=== PATIENT | female | born 1995 | race American Indian/Alaskan Native ===

== ENCOUNTER 2017-10-19 21:25 | Emergency (ER) | payer SELFPAY ==
[2017-10-19 21:44] VITALS: BP 121/62
[2017-10-19] MEDS ORDERED: ZOFRAN ODT PO ONE (22:45)
[2017-10-19 23:32] LABS: BUN/Creatinine Ratio 14; Blood Urea Nitrogen 7 mg/dL (7-17); Calcium 9.5 mg/dL (8.4-10.2); Hemolysis Index 1
[2017-10-19 23:45] LABS: Hematocrit 39.6 % (30.3-42.9); Hemoglobin 12.9 gm/dl (10.1-14.3); Mean Corpuscular HGB Conc 33 % (30-34); Mean Corpuscular Hemoglobin 28 pg (28-32); Mean Corpuscular Volume 86 fl (79-97); Platelet Count 268 K/mm3 (140-440); Red Cell Distribution Width 16.6 % (13.2-15.2)
[2017-10-20 00:16] LABS: Bacteria,Urine 1+ /HPF (Negative); Bilirubin,Urine NEG (Negative); Blood,Urine MOD (Negative); Color,Urine Yellow (Yellow); Mucus,Urine 3+ /HPF; Nitrite,Urine NEG (Negative)
--- NOTE | 2017-10-20 01:49 | Ultrasound Report ---
FINAL REPORT EXAM: US OB TRANSVAGINAL HISTORY: preg with pelvic pain and bleeding TECHNIQUE: Transvaginal imaging was obtained of the pelvis. Doppler interrogation of the uterus and adnexa was also obtained. FINDINGS: The uterus is anteverted measuring 8.6 cm x 5.2 cm x 6.3 cm. Within the uterus is a gestational sac containing a yolk sac and pole. The crown-rump length of the pole is 5.3 millimeters corresponding to a 6 week 2 day IUP. The heart rate is 98 beats per minute which is below normal. Along the ventral margin of the gestational sac is a nonspecific hypoechoic area measuring 1.2 cm x 0.8 cm x 1.2 cm. The cervix is closed. Free fluid is not seen. The right ovary is normal size contour and echotexture measuring 2 cm x 1.1 cm x 1.9 cm. The left ovary measures 3 cm x 2.2 cm x 2.2 cm. Within the left ovary is a slightly hypoechoic area measuring up to 1.8 cm in diameter. This may represent a hemorrhagic cyst. Free fluid is not seen in the pelvis. IMPRESSION: Single viable 6 week 2 day IUP as described. heart rate is low normal at 98 BPM. Follow-up study recommended. Non specific hypoechoic area along the anterior wall of the gestational sac measuring 1.2 cm x 0.8 cm x 1.2 cm. Whether this represents a very small subchorionic hemorrhage is uncertain. Hypoechoic area in the left ovary measuring up to 1.8 cm in diameter. This may represent a hemorrhagic cyst
--- NOTE | 2017-10-20 02:04 | Ultrasound Report ---
FINAL REPORT EXAM: US OB < = 14 WEEKS FETUS HISTORY: preg with pelvic pain and bleeding TECHNIQUE: Transabdominal imaging was obtained of the pelvis. Doppler interrogation was obtained of the uterus and adnexa. FINDINGS: The uterus is anteverted measuring 8.6 cm x 5.2 cm x 6.3 cm. Within the uterus is a gestational sac containing a yolk sac and pole. The crown-rump length is 5.3 millimeters corresponding to a 6 week 2 day IUP. The heart rate is diminished at 98 beats per minute. The cervix is closed. Along the anterior wall of the gestational sac is an indeterminate hypoechoic area measuring 1.2 cm x 0.8 cm x 1.2 cm. The maternal right ovary is appropriate size contour and echotexture measuring 2 cm x 1.1 cm x 1.9 cm. The left ovary measures 3 cm x 2.2 cm x 2.2 cm. There is a hypoechoic area measuring 1.8 cm diameter possibly representing a hemorrhagic cyst. Free fluid is not seen IMPRESSION: Six week 2 day IUP with heart rate of 98 BPM. Follow-up studies recommended given the diminished heart rate. Indeterminate hypoechoic area along the anterior wall of the gestational sac measuring 1.2 cm x 0.8 cm x 1.2 cm. With this represents subchorionic hemorrhage is uncertain. Once again a follow-up studies recommended. Probable hemorrhagic cyst in left ovary measuring 1.8 cm in diameter.
[2017-10-20] MEDS ORDERED: NACL 0.9% 1000 ML 1,000 ML IV ONE (10:53)
[2017-10-20] MEDS ORDERED: MACROBID PO ONE (10:53)
--- NOTE | 2017-10-20 10:56 | Emergency Department Report ---
HPI - General Chief Complaint: Nausea/Vomiting/Diarrhea Time Seen by Provider: 10/20/17 10:52 - HPI HPI: This a 22 year-old female presents to the emergency department with complaint of some mild vaginal spotting for one day and a two-week history of nausea with vomiting. Patient took a home test and said it was positive but has not yet been in to see an [facility]. She does follow with [facility] for regular [facility] checkups. She has not taken anything for her symptoms presentation. With this she is with one previous . She denies any fever, back pain, dysuria or vaginal discharge. No recent travel or sick contacts at home. ED Past Medical Hx - Past Medical History Previous Medical History?: No - Surgical History Past Surgical History?: No - Social History Smoking Status: Never Smoker Substance Use Type: None - Medications Home Medications: Home Medications Medication Instructions Recorded Confirmed Last Taken Type Nitrofurantoin Monohyd/M-Cryst 100 mg PO BID #14 capsule 10/20/17 Unknown Rx [Macrobid 100 mg Capsule] Vit Calc,Iron,Folic 1 each PO QDAY #30 tablet 10/20/17 Unknown Rx [ Vitamins] ED Review of Systems ROS: Stated complaint: VOMITING,VAGINAL BLEEDING Other details as noted in HPI Comment: All other systems reviewed and negative Constitutional: denies: chills, fever Eyes: denies: eye pain, eye discharge, vision change ENT: denies: ear pain, throat pain Respiratory: denies: cough, shortness of breath, wheezing Cardiovascular: denies: chest pain, palpitations Gastrointestinal: nausea, vomiting Genitourinary: other (vaginal spotting). denies: dysuria, discharge Musculoskeletal: denies: back pain, joint swelling, arthralgia Skin: denies: rash, lesions Neurological: denies: headache, weakness, paresthesias Physical Exam - Physical Exam Vital Signs: Vital Signs 10/19/17 10/19/17 21:40 22:41 Temperature 99.0 F 99 F Pulse Rate 76 66 Respiratory 18 18 Rate Blood Pressure 121/62 121/62 O2 Sat by Pulse 100 100 Oximetry Physical Exam: GENERAL: The patient is well-developed well-nourished. HENT: Normocephalic. Atraumatic. Patient has moist mucous membranes. EYES: Extraocular motions are intact. Pupils equal reactive to light bilaterally. NECK: Supple. Trachea is midline. CHEST/LUNGS: Clear to auscultation. There is no respiratory distress noted. HEART/CARDIOVASCULAR: Regular. There is no tachycardia. There is no murmur. ABDOMEN: Abdomen is soft, nontender. Patient has normal bowel sounds. There is no abdominal distention. SKIN: Skin is warm and dry. NEURO: The patient is awake, alert, and oriented. The patient is cooperative. The patient has no focal neurologic deficits. The patient has normal speech. MUSCULOSKELETAL: There is no tenderness or deformity. There is no limitation range of motion. There is no evidence of acute injury. ED Course Vital Signs 10/19/17 10/19/17 21:40 22:41 Temperature 99.0 F 99 F Pulse Rate 76 66 Respiratory 18 18 Rate Blood Pressure 121/62 121/62 O2 Sat by Pulse 100 100 Oximetry ED Medical Decision Making - Lab Data Result diagrams: 10/19/17 22:54 10/19/17 22:54 - Radiology Data Radiology results: report reviewed EXAM: US OB TRANSVAGINAL HISTORY: preg with pelvic pain and bleeding TECHNIQUE: Transvaginal imaging was obtained of the pelvis. Doppler interrogation of the uterus and adnexa was also obtained. FINDINGS: The uterus is anteverted measuring 8.6 cm x 5.2 cm x 6.3 cm. Within the uterus is a gestational sac containing a yolk sac and pole. The crown-rump length of the pole is 5.3 millimeters corresponding to a 6 week 2 day IUP. The heart rate is 98 beats per minute which is below normal. Along the ventral margin of the gestational sac is a nonspecific hypoechoic area measuring 1.2 cm x 0.8 cm x 1.2 cm. The cervix is closed. Free fluid is not seen. The right ovary is normal size contour and echotexture measuring 2 cm x 1.1 cm x 1.9 cm. The left ovary measures 3 cm x 2.2 cm x 2.2 cm. Within the left ovary is a slightly hypoechoic area measuring up to 1.8 cm in diameter. This may represent a hemorrhagic cyst. Free fluid is not seen in the pelvis. IMPRESSION: Single viable 6 week 2 day IUP as described. heart rate is low normal at 98 BPM. Follow-up study recommended. Non specific hypoechoic area along the anterior wall of the gestational sac measuring 1.2 cm x 0.8 cm x 1.2 cm. Whether this represents a very small subchorionic hemorrhage is uncertain. Hypoechoic area in the left ovary measuring up to 1.8 cm in diameter. This may represent a hemorrhagic cyst Transcribed By: RB Dictated By: REY MEANS MD Electronically Authenticated By: REY MEANS MD Signed Date/Time: 10/19/17 0469 - Medical Decision Making Patient is at about 6 weeks with live intrauterine seen on ultrasound. She complained of some mild vaginal spotting and therefore she has a threatened miscarriage but currently the fetus appears stable. There may also be a left ovarian cyst and possible small subchorionic bleed. Vital signs stable. Labs show dehydration with 80 ketones in the urine. She did receive some Zofran prior to my arrival on shift and was artificially feeling improved and able to keep down some fluid. She was given 1 L of IV fluid secondary to her dehydration and probable hyperemesis gravidarum. She has not seen [facility] regarding this but does follow with them regularly. She was started on Macrobid for a mild urinary tract infection. She was started on vitamins. She's been encouraged to follow up with [facility] regarding antiemetics and for follow-up regarding the . - Differential Diagnosis , miscarriage, threatened miscarriage, fibroids, hyperemesis Critical Care Time: No Critical care attestation.: If time is entered above; I have spent that time in minutes in the direct care of this critically ill patient, excluding procedure time. ED Disposition Clinical Impression: Threatened miscarriage, Hyperemesis gravidarum, Dehydration Qualifiers: Weeks of gestation: less than 8 weeks Qualified Code(s): Z3A.01 - Less than 8 weeks gestation of Ovarian cyst Qualifiers: Laterality: left Qualified Code(s): N83.202 - Unspecified ovarian cyst, left side UTI (urinary tract infection) Qualifiers: Urinary tract infection type: acute cystitis Hematuria presence: without hematuria Qualified Code(s): N30.00 - Acute cystitis without hematuria Disposition: DC-01 TO HOME OR SELFCARE Is pt being admited?: No Condition: Stable Instructions: Threatened Miscarriage (ED), (ED), Hyperemesis Gravidarum (ED), Dehydration (ED), Urinary Tract Infection in Women (ED) Additional Instructions: Please follow-up with your [facility]GER in the next few days. Increase your oral rehydration. Take the antibiotics as prescribed. Return to the emergency Department with any worsening of your symptoms or any acute distress. Prescriptions: Nitrofurantoin Monohyd/M-Cryst [Macrobid 100 mg Capsule] 100 mg PO BID #14 capsule Vit Calc,Iron,Folic [ Vitamins] 1 each PO QDAY #30 tablet Referrals: OBGYN,[facility] [Other] - 3-5 Days Time of Disposition: 12:37
== END 2017-10-20 13:21 | disposition home or self-care (01) ==
LOC: ED 21:25
DX: O20.0 Threatened abortion (principal); O21.0 Mild hyperemesis gravidarum; O34.81 Maternal care for other abnormalities of pelvic organs, first trimester; N83.202 Unspecified ovarian cyst, left side; O23.41 Unspecified infection of urinary tract in pregnancy, first trimester; E86.0 Dehydration; Z3A.01 Less than 8 weeks gestation of pregnancy
CPT/HCPCS: 36415; 76801; 76817; 80048; 81001; 84702; 85027; 86900; 86901; 96360; 99284; J7030; Q0162